=== PATIENT | female | born 1945 | race Caucasian/White ===

== ENCOUNTER → 2017-06-30 | Outpatient (CLI) | payer OTHER, MEDICAID | LOC: M.RAD 12:59 | DX: Z01.818 Encounter for other preprocedural examination (principal); J44.9 Chronic obstructive pulmonary disease, unspecified; I51.7 Cardiomegaly ==

== ENCOUNTER → 2019-03-25 | Outpatient (CLI) | payer OTHER, MEDICAID | LOC: M.RAD 09:19 | DX: Z12.31 Encounter for screening mammogram for malignant neoplasm of breast (principal); M81.0 Age-related osteoporosis without current pathological fracture; Z78.0 Asymptomatic menopausal state ==

== ENCOUNTER 2019-08-17 11:48 | Emergency (ER) | payer OTHER, MEDICAID ==
[~2019-08-17] VITALS: Ht 147.3 cm; Wt 96.2 kg
[2019-08-17] MEDS ORDERED: METFORMIN HCL500 M3 PO (11:58)
[2019-08-17] MEDS ORDERED: KLOR-CON 10 ER10 MEQ PO (11:58)
[2019-08-17] MEDS ORDERED: NAPROSYN500 M1 PO (11:58)
[2019-08-17] MEDS ORDERED: MAGNESIUM250 M1 PO (11:58)
[2019-08-17] MEDS ORDERED: ASA81BEC PO (11:58)
[2019-08-17] MEDS ORDERED: PRAVASTATIN SOD10 MG PO (11:59)
[2019-08-17 12:44] LABS: APTT 23.1 Seconds (25.0-31.3); CALCIUM 8.4 mg/dL (8.5-10.1); CREATININE 0.9 mg/dL (0.6-1.3); PROTIME 10.3 Seconds (9.20-11.50)
[2019-08-17 12:49] LABS: ALBUMIN 3.6 g/dL (3.4-5.0); TOTAL BILIRUBIN 0.4 mg/dL (<0.1-1.0)
[2019-08-17 13:01] LABS: ABSOLUTE BASOPHILS 0.1 thou/uL (0.0-0.2); ABSOLUTE EOSINOPHILS 0.2 thou/uL (0.0-0.7); ABSOLUTE LYMPHOCYTES 1.2 thou/uL (0.8-5.3); ABSOLUTE MONOCYTES 0.4 thou/uL (0.0-1.2); BASOPHILS 0.9 %; EOSINOPHILS 3.3 %; HEMATOCRIT 36.3 % (37.0-47.0); HEMOGLOBIN 12.1 gm/dL (12.0-15.0); LYMPHOCYTES 20.3 %; MCH 27.8 pg (26.0-34.0); MCHC 33.4 g/dL (28.0-37.0); MCV 83.4 fL (80.0-100.0); MONOCYTES 7.6 %; MPV 9.1 fl. (7.2-11.1); NUCLEATED RBCS 0 /100WBC; PLATELET COUNT* 225 thou/uL (150-400); POLYS 67.9 %; RBC 4.35 mil/uL (4.20-5.00); RDW-CV 15.5 % (10.5-14.5); WBC 5.8 thou/uL (4.0-11.0)
[2019-08-17 14:05] VITALS: BP 158/72
== END 2019-08-17 14:19 | disposition home or self-care (01) ==
LOC: M.ERS 11:48
PROVIDERS: Family Medicine
DX: S81.812A Laceration without foreign body, left lower leg, initial encounter (principal); S80.12XA Contusion of left lower leg, initial encounter; E11.9 Type 2 diabetes mellitus without complications; E78.5 Hyperlipidemia, unspecified; J44.9 Chronic obstructive pulmonary disease, unspecified; Z79.82 Long term (current) use of aspirin; Z79.84 Long term (current) use of oral hypoglycemic drugs; Z79.899 Other long term (current) drug therapy; W20.8XXA Other cause of strike by thrown, projected or falling object, initial encounter; Y93.89 Activity, other specified; Y92.89 Other specified places as the place of occurrence of the external cause; Y99.8 Other external cause status

== ENCOUNTER 2019-11-20 17:16 | Emergency (ER) | payer OTHER, MEDICAID ==
[~2019-11-20] VITALS: Ht 167.6 cm; Wt 137.0 kg
[~2019-11-20 17:16] MED LIST: ASA81BEC PO; KLOR-CON 10 ER10 MEQ PO; MAGNESIUM250 M1 PO; METFORMIN HCL500 M3 PO; NAPROSYN500 M1 PO; PRAVASTATIN SOD10 MG PO
[2019-11-20 19:30] VITALS: BP 108/57
== END 2019-11-20 19:41 | disposition home or self-care (01) ==
LOC: M.ERS 17:16
DX: S01.81XA Laceration without foreign body of other part of head, initial encounter (principal); E11.9 Type 2 diabetes mellitus without complications; E78.5 Hyperlipidemia, unspecified; J44.9 Chronic obstructive pulmonary disease, unspecified; Z79.82 Long term (current) use of aspirin; Z79.84 Long term (current) use of oral hypoglycemic drugs; W19.XXXA Unspecified fall, initial encounter; Y93.89 Activity, other specified; Y92.89 Other specified places as the place of occurrence of the external cause; Y99.8 Other external cause status

== ENCOUNTER → 2020-04-01 | Outpatient (CLI) | payer OTHER, MEDICAID | LOC: M.RAD 10:19 | PROVIDERS: ATTEND Nurse Practitioner Family | DX: Z12.31 Encounter for screening mammogram for malignant neoplasm of breast (principal) ==

== ENCOUNTER 2020-04-26 13:20 | Emergency (ER) | payer OTHER, MEDICAID ==
[~2020-04-26] VITALS: Ht 144.8 cm; Wt 94.8 kg
[2020-04-26] MEDS ORDERED: KEFLEX500 M1 PO (14:32)
[2020-04-26 15:05] VITALS: BP 154/77
== END 2020-04-26 15:05 | disposition home or self-care (01) ==
LOC: M.ERS 13:20
DX: S83.91XA Sprain of unspecified site of right knee, initial encounter (principal); S51.811A Laceration without foreign body of right forearm, initial encounter; J44.9 Chronic obstructive pulmonary disease, unspecified; E11.9 Type 2 diabetes mellitus without complications; E78.5 Hyperlipidemia, unspecified; Z79.899 Other long term (current) drug therapy; Z98.2 Presence of cerebrospinal fluid drainage device; W01.198A Fall on same level from slipping, tripping and stumbling with subsequent striking against other object, initial encounter; Y93.89 Activity, other specified; Y92.098 Other place in other non-institutional residence as the place of occurrence of the external cause; Y99.8 Other external cause status

== ENCOUNTER → 2020-05-13 | Outpatient (CLI) | payer OTHER, MEDICAID ==
[~2020-05-13] MED LIST changes: +KEFLEX500 M1 PO
== END ==
LOC: M.RAD 14:25
PROVIDERS: ATTEND Radiology Diagnostic Radiology
DX: R92.1 Mammographic calcification found on diagnostic imaging of breast (principal)

== ENCOUNTER 2020-09-01 15:42 | Emergency (ER) | payer OTHER, MEDICAID ==
[~2020-09-01] VITALS: Ht 144.8 cm; Wt 97.1 kg
[2020-09-01 19:15] VITALS: BP 131/70
== END 2020-09-01 19:15 | disposition home or self-care (01) ==
LOC: M.ERS 15:42
DX: S60.221A Contusion of right hand, initial encounter (principal); S00.81XA Abrasion of other part of head, initial encounter; R04.0 Epistaxis; J44.9 Chronic obstructive pulmonary disease, unspecified; E11.9 Type 2 diabetes mellitus without complications; E78.5 Hyperlipidemia, unspecified; W01.0XXA Fall on same level from slipping, tripping and stumbling without subsequent striking against object, initial encounter; Y93.89 Activity, other specified; Y92.89 Other specified places as the place of occurrence of the external cause; Y99.8 Other external cause status

== ENCOUNTER 2020-09-22 08:18 | Emergency (ER) | payer OTHER, MEDICAID ==
[~2020-09-22] VITALS: Ht 147.3 cm; Wt 98.6 kg
[2020-09-22 08:44] LABS: ABSOLUTE BASOPHILS 0.1 thou/uL (0.0-0.2); ABSOLUTE EOSINOPHILS 0.2 thou/uL (0.0-0.7); ABSOLUTE LYMPHOCYTES 1.6 thou/uL (0.8-5.3); ABSOLUTE MONOCYTES 0.5 thou/uL (0.0-1.2); ABSOLUTE NEUTROPHILS 4.1 thou/uL (1.6-8.1); BASOPHILS 0.8 %; EOSINOPHILS 3.5 %; HEMATOCRIT 39.5 % (37.0-47.0); HEMOGLOBIN 12.5 gm/dL (12.0-15.0); LYMPHOCYTES 25.3 %; MCH 26.1 pg (26.0-34.0); MCHC 31.8 g/dL (28.0-37.0); MCV 82.2 fL (80.0-100.0); MONOCYTES 7.2 %; MPV 8.3 fl. (7.2-11.1); NUCLEATED RBCS 0 /100WBC; PLATELET COUNT* 251 thou/uL (150-400); POLYS 63.2 %; WBC 6.4 thou/uL (4.0-11.0)
[2020-09-22 08:56] LABS: CALCIUM 8.7 mg/dL (8.5-10.1); CREATININE 0.7 mg/dL (0.6-1.3); POTASSIUM 3.9 mmol/L (3.5-5.1)
[2020-09-22 08:59] LABS: APTT 28.9 Seconds (25.0-31.3); PROTIME 10.3 Seconds (9.20-11.50)
[2020-09-22 09:01] LABS: ALBUMIN 3.6 g/dL (3.4-5.0); TOTAL BILIRUBIN 0.4 mg/dL (<0.1-1.0); TOTAL PROTEIN 7.6 g/dL (6.4-8.2)
[2020-09-22 10:18] LABS: URINE BLOOD 3+ (Negative); URINE CLARITY CLOUDY; URINE COLOR BROWN; URINE GLUCOSE-RANDOM NEGATIVE (Negative); URINE KETONES TRACE (Negative); URINE LEUKOCYTES-REFLEX TRACE (Negative); URINE PROTEIN 2+ (Negative); URINE SPECIFIC GRAVITY >= 1.030 (1.005-1.030)
[2020-09-22 10:20] LABS: ICTOTEST (BILI CONFIRMATORY) Negative (Negative); URINE BILIRUBIN 2+ (Negative); URINE NITRITE-REFLEX POSITIVE (Negative)
[2020-09-22 10:27] LABS: SQUAMOUS >10 Many /LPF (0-3)
[2020-09-22 10:28] LABS: BACTERIA-REFLEX >30 Many /HPF (None Seen); URINE RBC >20 Many /HPF (0-2); URINE WBC-REFLEX 6-15 Few /HPF (0-5)
[2020-09-22 10:29] LABS: CASTS None Seen /LPF (None Seen); CRYSTALS None Seen /LPF (None Seen); MUCUS None Seen strn/LPF (None Seen)
[2020-09-22] MEDS ORDERED: MACROBID 100 M100 M1 PO (10:42)
[2020-09-22] MEDS ORDERED: HYDROCODON-ACE1 EAC7 PO (10:42)
[2020-09-22 11:14] VITALS: BP 185/56
--- NOTE | 2020-09-22 18:56 | EKG ---
[place] [address] ELECTROCARDIOGRAM REPORT Name: CHAITANYASEBASTIENNUNU Room: [facility]#: [id number] Admission: 09/22/20 Attend Phys: Discharge: 09/22/20 Date of : 47 Date of Service: 09/22/20 0857 Report #: [id number] THIS REPORT FOR: //name// [facility] ED Test Date: 2020-09-22 Test Time: 08:57:10 Pat Name: SEBASTIEN TAVARES Department: Room: Gender: [employer]: ADIEL : 1945 Requested By: Stephen Leung Order Number: [id number] MD: Bhargav Dodson Measurements Intervals [place] Rate: 76 P: 79 VA: 305 QRS: -41 QRSD: 117 T: 55 QT: 423 QTc: 476 Interpretive Statements Sinus rhythm Prolonged VA interval Left ventricular hypertrophy No previous ECG available for comparison Electronically Signed On 09-22-2020 18:56:39 CDT by Bhargav Dodson [email or web address] <ELECTRONICALLY SIGNED> By: Bhargav Dodson MD, [facility] 09/22/20 1856 6 6 Bhargav Dodson MD, [facility] /EPI
== END 2020-09-22 11:16 | disposition home or self-care (01) ==
LOC: M.ERS 08:18
PROVIDERS: Family Medicine
DX: S42.292A Other displaced fracture of upper end of left humerus, initial encounter for closed fracture (principal); N39.0 Urinary tract infection, site not specified; E11.9 Type 2 diabetes mellitus without complications; E78.5 Hyperlipidemia, unspecified; J44.9 Chronic obstructive pulmonary disease, unspecified; W18.39XA Other fall on same level, initial encounter; Y93.89 Activity, other specified; Y92.89 Other specified places as the place of occurrence of the external cause; Y99.8 Other external cause status